=== PATIENT | male | born 1935 | race Caucasian/White ===

== ENCOUNTER 2017-08-04 07:51 | Emergency (ER) | payer MEDICARE, OTHER ==
[~2017-08-04] VITALS: Ht 170.2 cm; Wt 78.8 kg
[~2017-08-04 07:51] MED LIST: AMLO10TA2 PO; ASPI1TAB69 PO; BACT800T5 PO; IPRAAER INH; LEVO50TA4 PO; LISI10TA3 PO; METF850T PO; SYMB160A INH; TRAM50TA PO
[2017-08-04 07:57] VITALS: BP 152/69; PULSE 86; RESP 20; TEMP 98.9; O2SAT 93
[2017-08-04] MEDS ORDERED: ASPI81TA23 PO (08:11)
[2017-08-04] MEDS ORDERED: DOXA1TAB35 PO (08:11)
[2017-08-04] MEDS ORDERED: RESP: ALBUTEROL 2.5 MG/IPRATROPIUM 0.5 MG NEB (SCH) NEB ONE (08:30)
--- NOTE | 2017-08-04 08:36 | PD ---
HPI Chief Complaint: Respiratory Symptoms Time Seen by Provider: 08:18 Travel History International Travel<30 days: No Contact w/Intl Traveler<30days: No Traveled to known affect area: No History of Present Illness HPI This patient complains of cough and congestion and runny nose and fever and shortness of breath. Symptoms severity is moderate. Duration 2 days. His cough is dry and hacking. Denies ill contacts. He has COPD but quit smoking many years ago. Not having chest pain. No presyncopal symptoms. No alleviating factors. No exacerbating factors PFSH Past Medical History Hx Anticoagulant Therapy: Yes (ASA 81MG DAILY) AAA: Yes (repaired through groin) Cardiovascular Problems: Yes (HTN) COPD: Yes Diabetes: Yes Patient Takes Glucophage: Yes (metformin) Diminished Hearing: Yes (wears hearing aids) Hypertension: Yes Respiratory: Yes Immunizations Current: Yes Thyroid Disease: Yes Influenza Vaccination: Yes Past Surgical History Neurologic Surgery: Yes (neck fusion, pituitary tumor) Other Surgery: Yes (right inguinal hernia repair, AAA repair) Social History Alcohol Use: Yes (seldom) Tobacco Use: No (former) Substance Use: No Allergies-Medications (Allergen,Severity, Reaction): Coded Allergies: iodine (Unverified Allergy, Severe, Anaphylaxis, 08/04/17) potassium iodide (Unverified Allergy, Severe, Anaphylaxis, 08/04/17) povidone-iodine (Unverified Allergy, Severe, Anaphylaxis, 08/04/17) sodium iodide (Unverified Allergy, Severe, Anaphylaxis, 08/04/17) sodium iodide (Unverified Allergy, Severe, Anaphylaxis, 08/04/17) Reported Meds & Prescriptions Reported Meds & Active Scripts Active Levothyroxine (Levothyroxine Sodium) 50 Mcg Tab 50 Mcg PO DAILY Tramadol (Tramadol HCl) 50 Mg Tab 50 Mg PO Q4H PRN Combivent Respimat Inh (Ipratropium-Albuterol Inh) 20-100 Retirement/Act Aero 2 Puff INH Q6HR PRN Lisinopril 10 Mg Tab 10 Mg PO DAILY Metformin (Metformin HCl) 850 Mg Tab 850 Mg PO DAILY With a meal Symbicort Inh (Budesonide/Formoterol Fumarate) 160-4.5 Mcg/Act Aero 2 Puff INH Q12HR Reported Doxazosin (Doxazosin Mesylate) 2 Mg Tab Unknown Dose PO DAILY Aspirin EC (Aspirin) 81 Mg Tabdr 81 Mg PO DAILY Review of Systems General / Constitutional: No: Fever Eyes: No: Visual changes HENT: Positive: Congestion, No: Headaches Cardiovascular: No: Chest Pain or Discomfort Respiratory: Positive: Cough, Shortness of Breath, Wheezing Gastrointestinal: No: Abdominal Pain Genitourinary: No: Dysuria Musculoskeletal: No: Pain Skin: No Rash Neurologic: No: Weakness Psychiatric: No: Depression Endocrine: No: Polydipsia Hematologic/Lymphatic: No: Easy Bruising Physical Exam Narrative GENERAL: Well-nourished, well-developed patient in no apparent distress. SKIN: Focused skin assessment reveals no rash and nodules. Skin is Warm and dry. HEAD: Atraumatic. Normocephalic. EYES: Pupils equal and round. No scleral icterus. No injection or drainage. ENT: No nasal bleeding or discharge. Mucous membranes pink and moist. NECK: Trachea midline. No JVD. CARDIOVASCULAR: Regular rate and rhythm. No murmur appreciated. RESPIRATORY: No accessory muscle use. Some rhonchi. Has some sparse crackles in the left base. Rare wheeze. Breath sounds equal bilaterally. GASTROINTESTINAL: Abdomen soft, non-tender, nondistended. Hepatic and splenic margins not palpable. MUSCULOSKELETAL: No obvious deformities. No clubbing. No cyanosis. No edema. NEUROLOGICAL: Awake and alert. No obvious cranial nerve deficits. Motor grossly within normal limits. Normal speech. PSYCHIATRIC: Appropriate mood and affect; insight and judgment normal. Data Data Last Documented VS Vital Signs Date Time Temp Pulse Resp B/P (MAP) Pulse Ox O2 Delivery O2 Flow Rate FiO2 08/04/17 08:12 20 94 Room Air 08/04/17 07:57 98.9 86 152/69 (96) Orders Orders Chest, Single Ap (08/04/17 ) Influenzae A/B Antigen (08/04/17 08:25) Albuterol-Ipratropium Neb (Duoneb Neb) (08/04/17 08:30) MDM Medical Decision Making Medical Screen Exam Complete: Yes Emergency Medical Condition: Yes Medical Record Reviewed: Yes Differential Diagnosis COPD exacerbation, pneumonia, bronchitis Narrative Course I have reviewed the patient's electronic medical record. I reviewed his chest x-ray shows fine reticular pattern of unknown chronicity. No consolidation Influenza swab is negative I gave him a nebulizer treatment He feels improved after nebulizer Given his chronic lung disease I've written him a Z-Grey The patient was advised to follow up with their physician and return if they worsen. I advised him to discuss his x-ray with his physician Diagnosis Primary Impression: Bronchitis Additional Impression: Chronic obstructive lung disease Additional Instructions: The patient was advised to follow up with their physician and return if they worsen. Med/Other Pt SpecificInfo: Prescription(s) given Scripts Azithromycin (Zithromax Z-Grey) 250 Mg Dspk 250 MG PO DIRECTED for Infection, #1 DSPK 0 Refills 500 MG (2 tabs) day 1, then 1 tab days 2-5. Prov: Keaton Pena MD 08/04/17 Disposition: 01 DISCHARGE HOME Condition: Stable Keaton Pena MD Aug 04, 2017 08:36
--- NOTE | 2017-08-04 09:08 | RADRPT ---
EXAM DATE/TIME: 08/04/2017 08:36 [facility] COMPARISON: No previous studies available for comparison. INDICATIONS : Cough MEDICAL HISTORY : Hypertension. Chronic obstructive pulmonary disease. SURGICAL HISTORY : AAA. ENCOUNTER: Initial ACUITY: 2 days PAIN SCORE: 1/10 LOCATION: Bilateral chest FINDINGS: There is mild-moderate reticulonodular interstitial prominence in the perihilar regions and lung base s of undetermined chronicity. No evidence of lobar consolidation or pleural effusion. Heart size and mediastinal contours are satisfactory. 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 This report was verified electronically.
[2017-08-04] MEDS ORDERED: ZITHTAB PO (09:27)
[2017-08-04 09:40] VITALS: BP 146/67
[2017-08-04] MEDS ORDERED: NEBUKIT5 (14:15)
[2017-08-04] MEDS ORDERED: IPRASOL INH (14:15)
[2017-08-06] MEDS ORDERED: IPRASOL INH (17:10)
== END 2017-08-04 09:41 | disposition home or self-care (01) ==
LOC: PHED 07:51
DX: J40 Bronchitis, not specified as acute or chronic (principal); J44.9 Chronic obstructive pulmonary disease, unspecified; R50.9 Fever, unspecified; I10 Essential (primary) hypertension; E11.9 Type 2 diabetes mellitus without complications; E07.9 Disorder of thyroid, unspecified; Z79.82 Long term (current) use of aspirin; Z79.84 Long term (current) use of oral hypoglycemic drugs
CPT/HCPCS: 71045; 87804; 94664; 99283

== ENCOUNTER 2017-11-30 09:34 | Emergency (ER) | payer MEDICARE ==
[~2017-11-30] VITALS: Ht 170.2 cm; Wt 74.8 kg
[~2017-11-30 09:34] MED LIST changes: -AMLO10TA2 PO; -ASPI1TAB69 PO; +ASPI81TA23 PO; -BACT800T5 PO; +DOXA1TAB35 PO; +IPRASOL INH; +NEBUKIT5; +ZITHTAB PO
[2017-11-30 09:39] VITALS: BP 172/90; PULSE 88; RESP 18; TEMP 97.9; O2SAT 92
[2017-11-30] MEDS ORDERED: AMLO10TA2 PO (09:52)
[2017-11-30] MEDS ORDERED: FINA5TAB2 PO (09:52)
--- NOTE | 2017-11-30 09:56 | PD ---
HPI Chief Complaint: Pain: Acute or Chronic Time Seen by Provider: 09:43 Travel History International Travel<30 days: No Contact w/Intl Traveler<30days: No Traveled to known affect area: No History of Present Illness HPI 82-year-old male presents emergency department for evaluation of right hip pain there is been present for several weeks. Patient states her last week the pain is worse and is having trouble walking. Says he has had use a cane which he does not use all the time. Says the pain is worse with walking and sitting. Currently he says the pain is 10/10. He did take tramadol this morning for the pain prior to coming to the emergency department for evaluation. Patient says that he was diagnosed with a "cracked hip" 15 years ago and had 1 month of hip pain last year however it resolved spontaneously. He also says that he had a hernia operation last year which may have contributed to his pain. Denies any radiation of his pain. Patient points to the right lateral sacroiliac joint region. He has a history of enlarged prostate, HTN, DM. PFSH Past Medical History Hx Anticoagulant Therapy: Yes (ASA 81MG DAILY) AAA: Yes (repaired through groin) Cardiovascular Problems: Yes (HTN) COPD: Yes Diabetes: Yes Patient Takes Glucophage: Yes Diminished Hearing: Yes (wears hearing aids) Hypertension: Yes Respiratory: Yes Immunizations Current: Yes Thyroid Disease: Yes Tetanus Vaccination: Unknown ?: Not Past Surgical History Neurologic Surgery: Yes (neck fusion, pituitary tumor) Other Surgery: Yes (right inguinal hernia repair, AAA repair) Social History Alcohol Use: Yes (seldom) Tobacco Use: No (former) Substance Use: No Allergies-Medications (Allergen,Severity, Reaction): Coded Allergies: iodine (Unverified Allergy, Severe, Anaphylaxis, 11/30/17) potassium iodide (Unverified Allergy, Severe, Anaphylaxis, 11/30/17) povidone-iodine (Unverified Allergy, Severe, Anaphylaxis, 11/30/17) sodium iodide (Unverified Allergy, Severe, Anaphylaxis, 11/30/17) sodium iodide (Unverified Allergy, Severe, Anaphylaxis, 11/30/17) Reported Meds & Prescriptions Reported Meds & Active Scripts Active Duoneb (Ipratropium-Albuterol Neb) 0.5-2.5 Mg/3 Ml Neb 1 Nebule INH Q6HR NEB Use instead of Combivent inhaler while symptoms exacerbated. Nebulizer Kit/Tubing/Mout (N/A) 1 Kit Kit Kit .ROUTE DIRECTED Levothyroxine (Levothyroxine Sodium) 50 Mcg Tab 50 Mcg PO DAILY Tramadol (Tramadol HCl) 50 Mg Tab 50 Mg PO Q4H PRN Combivent Respimat Inh (Ipratropium-Albuterol Inh) 20-100 Long-Term/Act Aero 2 Puff INH Q6HR PRN Lisinopril 10 Mg Tab 10 Mg PO DAILY Metformin (Metformin HCl) 850 Mg Tab 850 Mg PO DAILY With a meal Symbicort Inh (Budesonide/Formoterol Fumarate) 160-4.5 Mcg/Act Aero 2 Puff INH Q12HR Reported Finasteride 5 Mg Tab 5 Mg PO DAILY Do not crush. Amlodipine (Amlodipine Besylate) 10 Mg Tab 10 Mg PO DAILY Aspirin EC (Aspirin) 81 Mg Tabdr 81 Mg PO DAILY Review of Systems Except as stated in HPI: all other systems reviewed are Neg Physical Exam Narrative GENERAL: Well-developed well-nourished in no apparent distress SKIN: Focused skin assessment warm/dry. HEAD: Atraumatic. Normocephalic. EYES: Pupils equal and round. No scleral icterus. No injection or drainage. ENT: No nasal bleeding or discharge. Mucous membranes pink and moist. NECK: Trachea midline. No JVD. No midline tenderness CARDIOVASCULAR: Regular rate and rhythm. No murmur appreciated. RESPIRATORY: No accessory muscle use. Clear to auscultation. Breath sounds equal bilaterally. GASTROINTESTINAL: Abdomen soft, non-tender, nondistended. No CVA tenderness MUSCULOSKELETAL: No obvious deformities. No clubbing. No cyanosis. No edema. Right hip-tenderness palpation to the lateral sacroiliac joint, mild protrusion compared to the left. Atrophy of the musculature of the pelvic girdle. Neurovascularly intact lower extremity. BACK: No CVA tenderness. No rash. No point tenderness on palpation of the spine. NEUROLOGICAL: Awake and alert. No obvious cranial nerve deficits. Motor grossly within normal limits. Normal speech. PSYCHIATRIC: Appropriate mood and affect; insight and judgment normal. Data Data Last Documented VS Vital Signs Date Time Temp Pulse Resp B/P (MAP) Pulse Ox O2 Delivery O2 Flow Rate FiO2 5/10/18 09:39 97.9 88 18 172/90 (546) 16 Orders Orders Hip, Uni(Ap&Lat) W Ap Pelvis (11/30/17 ) MDM Medical Decision Making Medical Screen Exam Complete: Yes Emergency Medical Condition: Yes Differential Diagnosis R hip bursitis, cellulitis, fracture, osteonecrosis, avascular necorsis, sprain , strain Narrative Course 82-year-old male presents emergency department evaluation of right hip pain after multiple falls this month. The last fall was several weeks ago. Patient denies any dizziness or unsteadiness at this point. Denies any head trauma. Vital signs are stable. X-ray was ordered to rule out acute process. There is no acute process. 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 Patient will be prescribed lidocaine patches. Patient says that he is use Aspercreme [id number] with good relief. I believe that lidocaine patches will help decrease some of his pain. He is advised to follow-up with an orthopedic physician. Follow-up with a primary care physician for further evaluation. Return for worsening or persistent symptoms. Diagnosis Primary Impression: Osteoarthritis Qualified Codes: M16.0 - Bilateral primary osteoarthritis of hip Referrals: Orthopedist Primary Care Physician Additional Instructions: Use ice or heat for symptom relief. If no contraindications, you may use Tylenol or Motrin per package instructions for your pain. You may use compression with Yannick wrap or similar to reduce swelling. If symptoms persist or worsen, return to the emergency department. Follow up with your primary care physician within 2 days. Disposition: 01 DISCHARGE HOME Condition: Stable Maty Gabriel November 30, 2017 09:56
--- NOTE | 2017-11-30 10:19 | RADRPT ---
EXAM DATE/TIME: 11/30/2017 10:03 [facility] COMPARISON: No previous studies available for comparison. INDICATIONS : Fall, right hip pain. MEDICAL HISTORY : Hypertension. Chronic obstructive pulmonary disease SURGICAL HISTORY : Abdominal aortic aneurysm repair. ENCOUNTER: Initial ACUITY: 1 week PAIN SCORE: 10/10 LOCATION: Right hip FINDINGS: There is moderate osteoarthritis of the hips bilaterally. No acute fracture or dislocation. There is a vascular stent in the distal aorta and proximal common iliac arteries. CONCLUSION: 1. No acute findings. Moderate osteoarthritis at the hips. Carlos Andino MD on November 30, 2017 at 10:13 Board Certified Radiologist. This report was verified electronically.
[2017-11-30] MEDS ORDERED: LIDO1PAD52 TOPICAL (10:27)
== END 2017-11-30 10:35 | disposition home or self-care (01) ==
LOC: PHEFT 09:34
DX: M16.11 Unilateral primary osteoarthritis, right hip (principal); N40.0 Benign prostatic hyperplasia without lower urinary tract symptoms; I10 Essential (primary) hypertension; E11.9 Type 2 diabetes mellitus without complications; J44.9 Chronic obstructive pulmonary disease, unspecified; E07.9 Disorder of thyroid, unspecified; Z87.891 Personal history of nicotine dependence; Z79.82 Long term (current) use of aspirin; Z79.899 Other long term (current) drug therapy
CPT/HCPCS: 73502; 99283